=== PATIENT | male | born 1950 | race Caucasian/White ===

== ENCOUNTER → 2020-09-16 | Outpatient (CLI) | payer MEDICARE, OTHER ==
--- NOTE | 2020-09-16 17:57 | Diagnostic Imaging Report ---
EXAMINATION: Abdomen 1 view. HISTORY: Left renal stone. COMPARISON: None available. FINDINGS: There has been instrumented fusion of the lumbar spine. No calcification is seen projecting over the kidneys. Moderate amount of stool is present in the colon. No dilated bowel or free air. IMPRESSION: No calcification is seen projecting over the kidneys. Dictated by: Dictated on workstation # [id number]
== END ==
LOC: RAD 11:19
PROVIDERS: ATTEND Urology
DX: N20.0 Calculus of kidney (principal)
CPT/HCPCS: 74018

== ENCOUNTER 2020-10-18 06:18 | Outpatient (CLI) | payer MEDICARE, OTHER ==
[~2020-10-18] VITALS: Ht 160 cm; Wt 72.7 kg
[2020-10-18] MEDS ORDERED: DICL75TA2 PO (11:30)
[2020-10-18] MEDS ORDERED: ATOR40TA70 PO (11:30)
[2020-10-18] MEDS ORDERED: LISI10TA25 PO (11:30)
[2020-10-18] MEDS ORDERED: ASPI-999 PO (11:30)
[2020-10-18] MEDS ORDERED: TRM50T PO (11:30)
[2020-10-18] MEDS ORDERED: OMEG-160 PO (11:30)
[2020-10-18] MEDS ORDERED: TMSL.4C PO (11:30)
[2020-10-18] MEDS ORDERED: FLAX100032 PO (11:30)
[2020-10-18] MEDS ORDERED: CYCL10TA9 PO (11:30)
[2020-10-18] MEDS ORDERED: GBPN600T PO (11:30)
[2020-10-18] MEDS ORDERED: OMEP20TA33 PO (11:30)
[2020-10-18] MEDS ORDERED: FENO160T12 PO (11:30)
[2020-10-18] MEDS ORDERED: METF-397 PO (11:30)
[2020-10-19] MEDS ORDERED: TMSL.4C PO (09:28)
[2020-10-19] MEDS ORDERED: NITR-68 PO (09:28)
== END 2020-10-18 11:37 | disposition home or self-care (01) ==
LOC: PREOP 06:18
PROVIDERS: ATTEND Urology
DX: Z01.818 Encounter for other preprocedural examination (principal)

== ENCOUNTER 2020-10-19 05:52 | Day surgery (SDC) | payer MEDICARE, OTHER ==
[2020-10-19] VITALS (8 sets, daily range): BP systolic 101–150; BP diastolic 67–90
[~2020-10-19] VITALS: Ht 160 cm; Wt 72.7 kg
[~2020-10-19 05:52] MED LIST: ASPI-999 PO; ATOR40TA70 PO; CYCL10TA9 PO; DICL75TA2 PO; FENO160T12 PO; FLAX100032 PO; GBPN600T PO; LISI10TA25 PO; METF-397 PO; OMEG-160 PO; OMEP20TA33 PO; TMSL.4C PO; TRM50T PO
[2020-10-19] MEDS ORDERED: ceFAZolin INJECTION 1,000 MG in WATER (STERILE) FOR INJECTION 10 ML IV ONE (06:45)
--- NOTE | 2020-10-19 06:46 | Progress Note-Pre Operative ---
Pre-Operative Progress Note H&P Reviewed The H&P was reviewed, patient examined and no changes noted. Date Seen by Provider: Oct 19, 2020 Time Seen by Provider: 06:46 Date H&P Reviewed: Oct 19, 2020 Time H&P Reviewed: 06:46 Pre-Operative Diagnosis: LT RENAL STONE PATRICK GRUBER MD Oct 19, 2020 06:46
[2020-10-19] MEDS ORDERED: ceFAZolin INJECTION 1,000 MG ONE (07:00)
[2020-10-19] MEDS: LACTATED RINGERS 1,000 ML IV PRN ×2 (07:06→09:38)
--- NOTE | 2020-10-19 07:51 | Diagnostic Imaging Report ---
Supine abdomen at 630 hours. INDICATION: Left ureteral stone. FINDINGS: The previous exam of 09/16/2020 failed to show any sign of a calculus overlying either kidney. On this exam, however there does appear to be a faint 4.3 mm calculus overlying the midportion of the left kidney. The right kidney remains obscured by bowel gas and fecal material. There are several small calcifications low in the pelvis on the left. These seem quite similar to the prior exam and may be related to phleboliths alone. However, if there is clinical concern regarding a distal ureteral calculus on the left, then CT of the abdomen and pelvis would be recommended for further study. The overall appearance of the abdomen and pelvis has not changed significantly otherwise. The orthopedic hardware overlying the lumbar spine seen previously seems stable. IMPRESSION: 1. There is a small nonobstructive calculus overlying the left kidney. There also appear to be a few calcific densities low in the pelvis on the left. Additional considerations as above. Dictated by: Dictated on workstation # [id number]
[2020-10-19] MEDS ORDERED: MIDAZOLAM 2 MG/2 ML (VERSED) VIAL ONE (07:55)
[2020-10-19] MEDS ORDERED: fentaNYL INJ 100 MCG/2 ML AMP ONE (07:55)
[2020-10-19] MEDS ORDERED: proPOfol 200 MG/20 ML (DIPRIVAN) VIAL IV ONE (07:55)
[2020-10-19] MEDS ORDERED: LIDOCAINE PF 2% 5 ML (XYLOCAINE) VIAL ONE (07:55)
[2020-10-19] MEDS ORDERED: SEVOFLURANE (ULTANE) 15 ML INHAL SOLN ONE ×2 (08:35→09:06)
--- NOTE | 2020-10-19 08:45 | Progress Note-Post Operative ---
Post-Operative Progess Note Surgeon (s)/Director Of Psychiatry (s) Surgeon PATRICK GRUBER MD Director Of Psychiatry: NONE Pre-Operative Diagnosis LT RENAL STONE Post-Operative Diagnosis SAME Procedure & Operative Findings Date of Procedure 10/19/20 Procedure Performed/Findings LT ESWL Anesthesia Type GENERAL Estimated Blood Loss Estimated blood loss (mL): NONE Specimens/Packing Specimens Removed NONE Packing: NONE PATRICK GRUBER MD Oct 19, 2020 08:45
--- NOTE | 2020-10-19 08:47 | Discharge Inst-Urology ---
Discharge Inst-Urology Reconcile Patient Problems Problems Reviewed?: Yes Final Diagnosis LT RENAL STONE Patient Instructions/Follow Up Plan/Assessment/Instructions Please make appointment to been seen in office in 2 weeks. KUB priro to it KUB on way home Post ESWL instructions Increase oral fluids for 48 hours and then as needed. Diet and Activity as tolerated. If questions or concerns contact your physician Or seek help at emergency department. PATRICK GRUBER MD Oct 19, 2020 08:47
[2020-10-19] MEDS ORDERED: NITR-68 PO (09:28)
[2020-10-19] MEDS ORDERED: TMSL.4C PO (09:28)
[2020-10-19] MEDS ORDERED: FUROSEMIDE 40 MG/4 ML INJ (LASIX) ONE (10:42)
--- NOTE | 2020-10-19 10:57 | OPERATIVE REPORT ---
DATE OF SERVICE: 10/19/2020 PREOPERATIVE DIAGNOSIS: Left renal stone. POSTOPERATIVE DIAGNOSIS: Left renal stone. OPERATION PERFORMED: Left ESWL. SURGEON: Dejuan Gruber MD ANESTHESIA: General. COMPLICATIONS: None. DESCRIPTION OF PROCEDURE: Under satisfactory general anesthesia, the patient in supine position on the ESWL table, the left renal stone was localized. Shocks were delivered at kV of 6. Total of 2500 shocks completely fragmented the stone. The patient received 40 mg of Lasix at the end of the procedure. He tolerated the procedure and anesthesia well and was sent to recovery room in stable condition. Job ID: [id number] DocumentID: [id number] Dictated Date: 10/19/2020 09:06:53 Field Sales Specialist Date: 10/19/2020 10:56:32 Dictated By: DEJUAN GRUBER MD
--- NOTE | 2020-10-19 11:02 | Anesthesia-General Post-Op ---
General Patient Condition Mental Status/LOC: Same as Preop Cardiovascular: Satisfactory Nausea/Vomiting: Absent Respiratory: Satisfactory Pain: Controlled Complications: Absent Post Op Complications Complications None Follow Up Care/Instructions Patient Instructions None needed. Anesthesia/Patient Condition Patient Condition Patient is doing well, no complaints, stable vital signs, no apparent adverse anesthesia problems. No complications reported per nursing. VAL ABREU CRNA Oct 19, 2020 11:02
--- NOTE | 2020-10-19 11:28 | Diagnostic Imaging Report ---
INDICATION: Nephrolithiasis. KUB 11:22 AM FINDINGS: There are some faint opacities projecting over the left kidney. Right kidney is obscured by stool in the colon. Patient has had prior fusion and discectomy at the lower lumbar spine. IMPRESSION: Left nephrolithiasis. Dictated by: Dictated on workstation # [id number]
== END 2020-10-19 11:30 | disposition home or self-care (01) ==
LOC: SDC 05:52
PROVIDERS: ATTEND Urology
DX: N20.0 Calculus of kidney (principal); I10 Essential (primary) hypertension; K21.9 Gastro-esophageal reflux disease without esophagitis; E11.9 Type 2 diabetes mellitus without complications; Z79.899 Other long term (current) drug therapy; Z79.84 Long term (current) use of oral hypoglycemic drugs
CPT/HCPCS: 74018; 82947; 87081

== ENCOUNTER → 2020-11-02 | Outpatient (CLI) | payer MEDICARE, OTHER ==
[~2020-11-02] MED LIST changes: +NITR-68 PO
--- NOTE | 2020-11-02 15:27 | Diagnostic Imaging Report ---
INDICATION: Left-sided lithotripsy. TIME OF EXAM: 2:14 PM Correlation is made with prior radiograph from 10/19/2020. The renal shadows are somewhat obscured by overlying stool and bowel gas. There are calcific densities overlying the lower pole of the left kidney. Stone burden may be slightly decreased since prior exam. No definite calculi along the course of the ureters are seen with exception of questionable calculus along the lateral margin of the sacrum on the left side. This could represent a distal ureteral calculus. Spinal instrumentation is noted. IMPRESSION: Left sided urinary tract calculi, as described. Dictated by: Dictated on workstation # [id number]
== END ==
LOC: RAD 13:51
PROVIDERS: ATTEND Urology
DX: N20.1 Calculus of ureter (principal)
CPT/HCPCS: 74018